=== PATIENT | male | born 1955 | race Caucasian/White ===

== ENCOUNTER → 2016-11-12 | Outpatient (REF) | payer BC | LOC: LAB 16:22 | PROVIDERS: ATTEND Family Medicine | DX: R73.01 Impaired fasting glucose (principal); M1A.09X1 Idiopathic chronic gout, multiple sites, with tophus (tophi) | CPT/HCPCS: 83036; 84550 ==

== ENCOUNTER → 2017-01-29 | Outpatient (CLI) | payer BC ==
[~2017-01-29] MED LIST: ALLO300T2 PO; ASPI-586 PO; ATOR40TA59 PO; BISO1TAB94 PO; CETI10TA20 PO; FLUT1AER INH; FLUT9.9S NS; HYDR-33 PO; LEVO200T6 PO; METF500T4 PO; MULT-1034 PO; NF-LISIN40 PO; OMG1KC PO; SIMV40TA2 PO; TIOT18CA INH
--- NOTE | 2017-01-29 12:24 | Diagnostic Imaging Report ---
EXAM: FACIAL BONES, 2 VIEWS OR LESS INDICATION: MRI clearance. COMPARISON: None. FINDINGS: No radiopaque foreign bodies overlying the orbits. The frontal and maxillary sinuses are well aerated and without air-fluid levels. IMPRESSION: No radiopaque foreign bodies overlying the orbits to preclude an MRI. Dictated by: Dictated on workstation # [id number]
--- NOTE | 2017-01-29 13:50 | Diagnostic Imaging Report ---
PROCEDURE: MRI right joint lower extremity without contrast. TECHNIQUE: Multiplanar, multisequence MR imaging of the right knee was performed without contrast. COMPARISON: Right knee radiograph of 06/04/2016. INDICATION: Right knee pain. History of knee arthroscopy. FINDINGS: MENISCI Medial meniscus: There is free edge truncation of the posterior horn and body of the medial meniscus, likely due to partial meniscectomy. However, there is irregularity of the undersurface of the posterior horn, likely due to recurrent tear. No displaced medial meniscal fragments. Lateral meniscus: Normal. LIGAMENTS ACL: ACL is intact with intrasubstance mucoid degeneration. There is intraosseous cystic ganglion change and surrounding edema of the tibial insertion of the ACL. PCL: Intact. MCL: Intact. LCL: The lateral collateral ligamentous complex is intact. EXTENSOR MECHANISM The extensor mechanism is intact. CARTILAGE Medial compartment: Diffuse full-thickness chondral loss throughout the weightbearing portion of the medial compartment. There is associated underlying subchondral bone marrow edema in both the medial femoral condyle and medial tibial plateau (grade IV chondromalacia). Lateral compartment: The lateral compartment articular cartilage is preserved without high-grade chondromalacia. Patellofemoral compartment: Diffuse partial-thickness chondral thinning throughout the medial patellar facet with superimposed foci of full-thickness chondral fissuring and underlying subchondral bone marrow edema. No full-thickness chondral loss in the trochlea. BONE No fracture, stress fracture or osteonecrosis. SOFT TISSUE: Small knee joint effusion with mild synovitis. No Warren's cyst. IMPRESSION: 1. Severe osteoarthritis in the medial compartment with diffuse full-thickness chondromalacia throughout the weightbearing portion. 2. Prior partial meniscectomy of the medial meniscus, with likely recurrent tear of the undersurface of the posterior horn. 3. Small knee joint effusion with mild synovitis, likely degenerative in nature. Dictated by: Dictated on workstation # [id number]
== END ==
LOC: RAD 11:50
PROVIDERS: ATTEND Orthopaedic Surgery
DX: M25.561 Pain in right knee (principal); Z77.018 Contact with and (suspected) exposure to other hazardous metals; M17.11 Unilateral primary osteoarthritis, right knee
CPT/HCPCS: 70140; 73721